=== PATIENT | female | born 1990 | race Caucasian/White ===

== ENCOUNTER 2018-03-28 08:30 | Outpatient (RCR) | payer MEDICAID, SELFPAY ==
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
--- NOTE | 2018-03-28 10:17 | BH.SGPN.GN ---
Behaviors/Verbalizations/Mental Status: []Client alert and oriented, casual dress. Eye contact good. Motor activity restless. Speech circumstantial, rambling at times, tone and frequency within normal limits. Affect congruent, mood anxious. Thoughts circular, logical, no signs of hallucinations or delusions. Client Response/Progress/Benefit: []Client responded well to session, active participant. Client stated coping skills help one process, manage, and release emotions. Client shared she has learned unhealthy coping skills from family and friends over the years and has had to remove people from my life. Client reported she continues to struggle with toxic relationships. Client participated in the activity, engaged and connecting how a sturdy base is needed for developing coping skills and overcoming hardships. Client reported it is important to have a mix of internal and external coping skills or else your tower will crumble. Client shared she lacks internal coping skills and relies on external supports which has been unhelpful as client reports her supports do not understand mental health. Client appeared to benefit from increasing awareness of her coping skills and of the benefits of having a balance of internal and external coping skills. Clients first day in IOP, seems to be motivated as evidenced by note-taking and high engagement. Client to continue IOP to prevent decompensation and increase mood stability.
--- NOTE | 2018-03-28 11:25 | BH.SGPN.GN ---
Behaviors/Verbalizations/Mental Status: []Client alert and oriented, dress casual. Eye contact good. Motor activity restless. Speech circular, rapid at times. Affect congruent, mood anxious. Thoughts linear, logical, no signs of hallucinations or delusions. Client Response/Progress/Benefit: []Client responded well to session, smiling with peers at times and positively contributing to discussion. Client able to identify healthy and unhealthy coping skills she has used in the past to regulate emotions and mental health. Client reported coloring and music are her go to coping skills. Client helped the group create a list of coping skills for the five categories of coping skills- distraction, emotional release, grounding, self-love, and thought challenging. Client also able to identify the pros and cons of each coping skill category. Client reported she would like to work on grounding and self-love coping skills. Client reported willingness to try squeezing a stress ball, journaling positives, meditation, and telling herself thoughts are thoughts not facts. Client appeared to benefit from increasing her repertoire of healthy coping skills and learning the importance of using a variety of coping skills. Client to continue IOP to prevent decompensation, improve mood stability, and increase emotional regulation skills.
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
--- NOTE | 2018-03-29 09:07 | BH.SGPN.GN ---
Behaviors/Verbalizations/Mental Status: [ Client eye contact fair, tearful throughout, casually dressed, motor activity was restless - client having observable difficulties sitting still as evidenced by rocking in chair and shaking legs, speech normal rate and tone, thoughts linear and logical, no evidence of delusions or hallucinations. Therapist reviewed clients symptom tracker to assess for intensity of mental health symptoms and identify risk for suicide. No signs of suicidal ideation, plan, or intent to date.] Client Response/Progress/Benefit: [Client receptive of engaging in process group discussion. She indicated feeling good when she initially left the group environment however felt as though she was surrounded by negativity upon returning home. Client went into detail discussing frustrations with current toxic relationships and backlash about making efforts to improve her own mental health and wellness. Client indicated not knowing how to improve her current situation when the people feel absent most of the ones that are hurting her. Client benefited from discussing the importance of setting emotional boundaries as well as focusing on personal self-care strategies to ensure emotional stability in times of increased stress. Client displaying progress in her ability to identify current barriers to improving mental health and managing emotions. Commended continued IOP treatment in order to prevent decompensation as well as further improve client ability to effective only communicate mental health needs as well as increase distress tolerance skills.] Narrative Note: []
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
--- NOTE | 2018-03-30 09:03 | BH.SGPN.GN ---
Behaviors/Verbalizations/Mental Status: []Client alert and oriented, dress casual, well groomed. Eye contact good. Motor activity restless. Speech rapid. Affect congruent, mood euthymic. Thoughts linear, logical, no signs of hallucinations or delusions. Reviewed clients symptom tracker, no risk for suicidal ideation, plan, or intent as of 03/30/18. Client Response/Progress/Benefit: []Client responded well to session, active participant. Client reports feeling better than I have been after waking up in a good mood. Client stated belief coming to IOP and minimal stress at home this morning contributed to her good mood. Client identified her current positives to be taking care of her hygiene this morning and learning coping skills in group. Client shared she continues to struggle with managing symptoms of anxiety and PTSD. Client reported I need a better foundation of coping skills in order to manage her anxiety and PTSD better as client currently relies on medication to regulate her symptoms. Client appeared to benefit from reflecting on the positives and receiving supportive statements from peers. Client seems to be progressing as shown by her report of an improved outlook on her ability to make progress, but client continues to struggle with negative thinking, unhealthy supports, and coping with her mental health symptoms. Client to continue IOP to prevent decompensation and increase mood stability.
--- NOTE | 2018-03-30 10:15 | BH.SGPN.GN ---
Behaviors/Verbalizations/Mental Status: [Client maintained good eye contact, casually dressed, motor activity restless bouncing leg and moving around room, messing with objects on table, speech normal rate and tone, mood anxious, euthymic, full affect, thoughts linear and intact, no evidence of delusions or hallucinations.] Client Response/Progress/Benefit: [Client receptive of session and an active participants throughout AEB providing input to discussion, asking questions, and taking notes. Client did well to collaborate with fellow participants to attempts to complete ?group juggle? activity. With group guidance, she was able to make connections between activity and components of a resilient lifestyle, identifying that if you focus on too many stressors at a time it is easy to get overwhelmed and shut down. Client shared that she knows she needs to take things ?one thing at a time? to prevent from having a panic attack. Client appeared to benefit from gaining awareness of the different factors that contribute to building a resilient lifestyle. Client identified that connecting with the ?hope and optimism? and ?move towards goals? as without these it is hard to stay motivated to ?stay on track?. Progress noted in client ability to make connections between materials discussed and own life. Continued treatment necessary to improve emotion regulation skills as well as prevent decompensation.] Narrative Note: []
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
--- NOTE | 2018-03-30 12:42 | BH.DR.ITP ---
Initial Treatment Plan - Patient Information Visit Information: ADMISSION DATE: EXPECTED LOS: 4-6 weeks Diagnoses:: Major depressive disorder of 33.1. PTSD. Borderline personality disorder - Problems/Symptoms Problem #1:: Depression Symptom:: Sad mood, difficulty concentrating, and self-harm behavior Problem #2:: Anxiety Symptom:: Rumination, panic, intrusive traumatic memories Problem #3:: Emotional dysregulation Symptom:: Self-harm urges
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
--- NOTE | 2018-04-03 09:02 | BH.SGPN.GN ---
Behaviors/Verbalizations/Mental Status: []Client alert and oriented, neatly dressed and groomed. Eye contact good. Motor activity restless as shown by client shaking her leg and rocking. Speech within normal limits. Affect congruent, mood anxious. Thoughts linear, logical, no signs of hallucinations or delusions. Reviewed clients symptom tracker, no risk for suicidal ideation, plan, or intent as of 04/03/18. Client Response/Progress/Benefit: []Client responded well to session, providing supportive statements to peers. Client reports feeling anxious today due to an upcoming court case. Client stated she plans to make stops at community agencies today to help reduce her anxiety. Client shared feeling like she is in the yellow zone most of the time. Client identified her positives as using healthy coping skills yesterday when she felt anxious and shaky. Client shared she gardened and talked to a neighbor to manage her anxiety which was helpful. Client reported I do feel like I slipped back yesterday as client drank 2-3 shots to take the edge off and help client relax. Client stated the shots made her feel tired and she was concerned about taking the shots with her medications. Therapist discussed the potential risks of using alcohol as a coping skill as well as using alcohol while taking certain medications. Client was receptive to the discussion of risks and she also connected with progress not being linear. Client appeared to benefit from gaining support from peers and psychoeducation. Client seems to be progressing with generalizing healthy coping skills, but she continues to struggle with reverting to unhealthy coping skills such as substance use to manage anxiety.
--- NOTE | 2018-04-03 10:15 | BH.SGPN.GN ---
Behaviors/Verbalizations/Mental Status: [Client maintained good, consistent eye contact, casually dressed - appearing appropriately groomed, motor activity within normal limits, speech normal rate and tone - well engaged in discussion, mood euthymic, contemplative, affect congruent, thoughts linear and logical, no evidence of delusions or hallucinations.] Client Response/Progress/Benefit: [Client receptive of session and engaged throughout, AEB providing input to discussion and insight regarding her experiences with topic of conflict resolution. Client indicated connecting with the quote for today's topic and expressed ?I can agree with that? in regards to the idea that conflict can arise from a lack of understanding. Client indicated that in the past she and her significant other fight because they have not been communicating effectively or truly listening to one another. Benefited from reviewing various conflict resolution styles and the pros and cons of each. She identified often falling into the accommodating or ?collaborating? approach to conflict. Client made progress in her ability to identify ways in which she would like to improve her ability to assert her own needs in times of disagreement and discussed ?I want to be more of a shark? in future conflict situations rather than shutting down. Client appears limited in ability to areas in which she currently utilizes assertive, at times aggressive approaches. Recommended continued IOP treatment in order to further improve gains, prevent decompensation, and increased utilization of effective communication and ?fair fighting? skills with supports.] Narrative Note: []
--- NOTE | 2018-04-03 11:17 | BH.SGPN.GN ---
Behaviors/Verbalizations/Mental Status: [Client maintained good eye contact, dressed casually and neatly, motor activity restless shifting in chair and moving around room, speech normal rate and tone, mood euthymic, anxious, affect congruent, thoughts linear and logical, no evidence of delusions or hallucinations.] Client Response/Progress/Benefit: [Client responded well to session, active participant AEB input provided in discussion and activity portions as well as asking clarification question. Client did well to work with fellow participants in completing the challenge activity. Indicates using collaborative communication throughout and with guidance did well to identify using assertive approaches as well. Client reflected that she sometimes can be assertive in her own life without realizing it when in a comfortable environment. Client progress noted in identifying how approaches to conflict in activity relate to her approaches to conflict in dx life. Client helped the group identify strategies to improve conflict resolution such as knowing when to walk away, being clear about expectations and concerns, as well as giving each other time to talk. Client appeared to benefit from learning various conflict resolution strategies. Client to continue IOP improve mood regulation and communication with supports, as well as prevent decompensation.] Narrative Note: []
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
--- NOTE | 2018-04-04 10:25 | BH.SGPN.GN ---
Behaviors/Verbalizations/Mental Status: []Client alert and oriented, dress casual, hygiene fair. Eye contact good. Motor activity appropriate. Speech within normal limits. Affect full, mood euthymic. Thoughts linear, logical, no signs of hallucinations or delusions. Client Response/Progress/Benefit: []Client responded well to session, active participant. Client connected with the quote sharing, ?you reinforce the negatives when you overthink? then it?s hard to change thoughts.? ?Client participated as the group discussed the different types of distortions and client reported she most often uses labeling, jumping to conclusions, and all or nothing thinking. Client able to recognize how cognitive distortions negatively impact one?s emotional well-being. Client appeared to benefit from gaining insight to the different types of cognitive distortions. Client to continue IOP to prevent decompensation and increase emotional regulation skills.
--- NOTE | 2018-04-04 11:25 | BH.SGPN.GN ---
Behaviors/Verbalizations/Mental Status: []Client alert and oriented, casual dress. Eye contact good. Motor activity appropriate. Speech within normal limits. Affect full- laughing with peers, mood euthymic. Thoughts linear, logical, no signs of hallucinations or delusions. Client Response/Progress/Benefit: []Client responded well to session, active participant. Client was engaged during the group activity and connected that overcoming cognitive distortions takes a lot of time, practice, and energy. Client shared ?you actually have to do something about it.? Client stated it is important to have awareness when she is using distortions, so she can challenge them. Client participated with the group in identifying cognitive distortions and replacing them. Client challenged her thought of ?things will never get better? which client identified as all or nothing thinking. With group help, client reframed the thought to ?things can get better and they are getting better? Client appeared to benefit from gaining insight to the effort it takes to replace negative thoughts and from challenging a negative thought during group.
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
--- NOTE | 2018-04-05 09:04 | BH.SGPN.GN ---
Behaviors/Verbalizations/Mental Status: [] Pt eye contact fair, casually dressed, motor activity restless, speech normal rate and tone, mood anxious, congruent affect, thoughts linear and logical, no evidence of delusions or hallucinations. Reviewed client?s symptom tracker, no signs of suicidal ideation, plan, or intent as of today. Client Response/Progress/Benefit: [] Client reported there is actually no drama at my home last night which was pretty awesome. Client shared her boyfriend actually listen to client communicate how she was feeling and did not overtake the conversation or be disrespectful. Client reported she focused on accomplishing her goals by cleaning the kitchen cooking dinner, sitting by her garden and coloring, and read her daughter a story. Client shared she is really excited about the fact she was able to read her daughter story because typically she become too anxious and not able to do it for fear of messing up. Client reported stressor is still not having found financial assistance to help until she gets approval from Social Security for financial assistance. Progress noted AEB client utilizing healthy skills and following through on her goals. Client to continue IOP level of care to stabilize moods, improve daily functioning and prevent decompensation. Narrative Note: []
--- NOTE | 2018-04-05 10:08 | BH.SGPN.GN ---
Behaviors/Verbalizations/Mental Status: [Client maintained good eye contact, casually dressed, motor activity appropriate, speech normal rate and tone, mood euthymic, positive, affect full, thoughts linear and logical, no evidence of delusions or hallucinations.] Client Response/Progress/Benefit: [Client responded well to session, active participant throughout and providing input to discussion. Client appeared to connect with the topic of ?taking action? and discussed waning to be able to actually be able to make positive changes in her own metal health symptoms in order to feel happy again and not slide back into depression. Client identified things in her life that are holding her back from moving towards mental wellness such as limited supports, finances, family relationships, finances, negative thinking, and easily becoming overwhelmed. Client stated she wants to take back control over these stressors and symptoms because she wants to be able to learn to love herself more and better control her own happiness. Client appeared to benefit from identifying stressors and symptoms holding her back and participating in a symbolic activity. Client to continue IOP to continue increasing management of emotions and use of distress tolerance skills and communication with supports, as well as to prevent decompensation.] Narrative Note: []
--- NOTE | 2018-04-05 11:15 | BH.SGPN.GN ---
Behaviors/Verbalizations/Mental Status: [Client maintained good eye contact, casually dressed, motor activity appropriate, speech normal rate and tone, mood euthymic, positive, affect full, thoughts linear and logical, no evidence of delusions or hallucinations.] Client Response/Progress/Benefit: [Client responded well to session, active participant and providing increased input throughout. With group support and guidance, Client created a 30-day action plan to promote emotional wellness and take back control over her mental health. Client needing some one on one assistance at times due to limited comprehension of certain prompts. Client's goal for the next 30 days is ?no more isolating?. Client shared wanting to improve self-esteem and believes decreasing isolation will aid in achieving this goal. Client's steps included reminding herself daily of positive affirmations, calling one person each day, and finding something outside of the house to do each week. Client appeared to benefit from identifying a 30-day goal that will improve her mental wellness. Progress noted as client ability to identify barriers to mental wellness, but client continues to report ongoing challenges with implementing healthy communication with supports which often impacts ability to regulate emotions. To continue IOP to promote gains and increase emotional regulation, as well as prevent decompensation.] Narrative Note: []
--- NOTE | 2018-04-06 09:00 | BH.SGPN.GN ---
Behaviors/Verbalizations/Mental Status: [] Eye contact was fair. Motor Activity was restless. Appearance was casual. Speech was appropriate. Mood was anxious. Affect was congruent. Thoughts are linear and logical. No evidence of hallucinations/delusions noted. Therapist reviewed daily mood tracker for suicidal ideations and none were reported. Client Response/Progress/Benefit: [] Pt was an active participant in group discussion. Emotion for today is restless but content. Shared with the group that she completed her goals and assignments from yesterday. States that she sat outside for 3 hours and completed some mindfulness and calming skills. Reports that she also listened to music and talked with her neighbor. Also reports another goals involved spending some time with daughter which she completed as she read to her. Reports that she continues to struggle with internal negative talk and thoughts and feels that her anti-depressant is wearing off around 5pm which can cause increased irritability and difficulty managing emotions. Overall reports improved mood and improved relationship with bf yesterday. Benefited from group support and feedback. Progress noted as evidenced by utilizing coping skills learned in group. Will continue in IOP to stabilize mood, increase daily functioning, and prevent further decompensation. Narrative Note: []
--- NOTE | 2018-04-06 10:05 | BH.SGPN.GN ---
Behaviors/Verbalizations/Mental Status: []Client alert and oriented, hygiene fair, somewhat disheveled. Eye contact good. Motor activity appropriate. Speech within normal limits. Affect full, mood euthymic, anxious. Thoughts linear, logical, no signs of hallucinations or delusions. Client Response/Progress/Benefit: []Client responded well to session, active participant and providing supportive statements to peers. Client appeared to connect with the quote sharing, we can make a self-fulfilling prophecy when we don't try. Client identified failure as not completing a goal or following through with something. Client shared fear of failure can be increased due to anxiety and depression. Client stated, when you're really overwhelmed you don't want to try. Client participated in the group activity and reported connecting with the concept that progress is not always linear. Client appeared to benefit from gaining insight to how fear of failure impacts mental health. Client to continue IOP to prevent decompensation, reduce anxiety, and increase emotional regulation skills.
--- NOTE | 2018-04-06 11:07 | BH.SGPN.GN ---
Behaviors/Verbalizations/Mental Status: []Client alert and oriented, dress somewhat disheveled. Eye contact good. Motor activity restless. Speech within normal limits. Affect congruent, mood euthymic, anxious. Thoughts linear, logical, no signs of hallucinations or delusions. Client Response/Progress/Benefit: []Client responded well to session, engaged throughout session. Client processed the group activity and shared you have to believe in yourself and its okay to go backwards sometimes. Client stated fear of failure has kept client from making positive changes in her life and it has led to increased negative thinking. Client shared fear of the unknown or the I dont knows has also kept client stuck. Client identified strategies to overcome fear of failure such as saying positives to herself, taking care of her basic needs, and doing something for my self-esteem. Clients goal for the weekend is to get dressed and do her makeup at least once to improve self-esteem. Client appeared to benefit from increasing awareness of how fear of failure has impacted her life and identifying strategies to overcome fear of failure. Progress noted as shown by clients report of using distraction coping skills to manage anxiety and depression, but client continues to struggle with emotional regulation and relationship issues. Client to continue IOP to prevent decompensation and increase emotional regulation.
--- NOTE | 2018-04-06 11:55 | PCM.PN.BLA ---
Progress Note Patient is seen in follow-up for major depressive disorder, PTSD, borderline personality disorder. History is been obtained per interview with patient, discussion with staff, review of chart. Case discussed with treatment team. Chief complaint Depression, anxiety, emotional dysregulation. Interim history Moderate depressive symptoms persist but of decreased intensity as the week progressed. She reports some mild irritability occurring between 4 and PM in the afternoon. She is unable to identify specific exacerbating factors. She wonders if this could be possible side effect of medication. She notes that she takes Effexor X are 150 mg at 6 AM. She then takes Effexor X are 75 mg at noon. She then takes trazodone at 4 PM. She has ruminative anxiety regarding upcoming court date on Monday. She has been managing her anxiety with coping skills gained through IOP and meditative apps. She was able to discontinue her Xanax. She denies withdrawal symptoms or adverse effects. She is currently using Vistaril 50 mg p.o. every morning as needed for anxiety. No suicidal or homicidal ideation later to her detected. No evidence of psychosis related to her detected. Sleeping 8-12 hours per night with the assistance of trazodone. Appetite normal. Denies nausea vomiting or diarrhea. Consuming one coffee and one soda daily. Encouraged caffeine reduction. Daily cannabis. Smokes 1 pack cigarettes daily. Mental status exam Alert and oriented . No acute distress. Ambulatory with normal gait and station. Appears stated age. Casually dressed and groomed. Appropriate hygiene. Cooperative with interview. Good eye contact. No psychomotor agitation or retardation. Mood depressed but improved. Affect congruent. Speech is clear and with regular rate and rhythm. Language fluent. Thought process organized. Associations logical. Thought content significant for ruminative anxiety and themes of depression. No suicidal or homicidal ideation related or detected. No symptoms consistent with psychosis noted or detected. Immediate recent and remote memory grossly intact. Attention and concentration are fair. Estimated intelligence and fund of knowledge average. Judgment and insight fair. Labs and testing April 05, 2018 vitamin D low at 12.3. TSH normal at 1.3 -labs reviewed with patient. Diagnosis Major depressive disorder recurrent moderate F 33.1 rule out bipolar disorder PTSD Borderline personality disorder Nicotine use disorder Cannabis use disorder Vitamin D deficiency. Plan Continue IOP as the structured setting is necessary to prevent decompensation. Risk-benefit alternative of medications discussed with patient. Patient acknowledges understanding. Continue Effexor XR 150 mg every morning and 75 mg at noon. Continue Vistaril 50 mg p.o. every morning and once daily as needed anxiety. Continue trazodone 50 mg p.o. nightly which she will take at 6 PM as needed for sleep. Start vitamin D 5000 units daily. Encourage smoking cessation. Encouraged cannabis abstinence. Encouraged caffeine reduction. Encouraged to maintain appointments with outpatient psychiatric providers for when IOP complete. Patient acknowledges understanding and is in agreement with plan. Feels able to maintain safety. Agrees to seek help or emergency care if feeling unsafe to self or others. 16 minutes supportive psychotherapy provided.
== END 2018-04-06 23:59 ==
LOC: BHIOP 08:30
PROVIDERS: Visit Provider Psychiatry & Neurology Psychiatry
DX: F33.1 Major depressive disorder, recurrent, moderate (principal); F43.10 Post-traumatic stress disorder, unspecified; F60.3 Borderline personality disorder
CPT/HCPCS: 90833; 90836; 99214; H0035; H2012; H2020; T1002; 90837

== ENCOUNTER → 2018-04-05 12:14 | Outpatient (CLI) | payer MEDICAID, SELFPAY ==
[2018-04-06 09:11] LABS: Vitamin D,25 Hydroxy 12.3 ng/mL (29.95-100.01)
== END ==
PROVIDERS: Visit Provider Psychiatry & Neurology Psychiatry
DX: E55.9 Vitamin D deficiency, unspecified (principal); Z79.899 Other long term (current) drug therapy
CPT/HCPCS: 36415; 82306; 84443

== ENCOUNTER 2018-04-10 08:59 | Outpatient (RCR) | payer MEDICAID, SELFPAY ==
--- NOTE | 2018-04-10 10:12 | BH.SGPN.GN ---
Behaviors/Verbalizations/Mental Status: [Client alert and oriented, casually dressed and groomed. Eye contact good. Motor activity appropriate. Speech within normal limits. Affect congruent, mood dysthymic. Thoughts linear, logical, no signs of hallucinations or delusions. ] Client Response/Progress/Benefit: [Pt responded well to session, actively engaged throughout. She appeared to connect with the topic of Communication, though at times struggled with understanding content. Able to ask for clarification when needed. Indicated relating with the quote of the day and discussed that she and her boyfriend have experienced issues at times when they assume they know what the other is thinking. Pt expressed connecting with barriers to communication identified by fellow participants. She was actively listening during discussion on different communication styles and provided thoughts regarding each style's pros and cons. Pt shared relating to each of the communication styles depending on who she is talking to; however, most often related to passive or aggressive. Pt shared wanting to become more assertive. Pt appeared to benefit from psycho-education provided regarding communication and it's impacts on mental health. Progress noted in pt ability to identify her own communication style and it's impact on her mental health, noting that when communication is impacted she her depression and anger worsen. Pt recommended continued IOP tx to promote healthy change behaviors, increase emotion regulation, and prevent decompensating.] Narrative Note: []
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
--- NOTE | 2018-04-10 11:26 | BH.SGPN.GN ---
Behaviors/Verbalizations/Mental Status: []Client alert and oriented, casual appearance. Eye contact good. Motor activity appropriate. Speech within normal limits. Affect congruent, mood euthymic. Thoughts linear, logical, no signs of hallucinations or delusions. Client Response/Progress/Benefit: []Client active participant AEB her positive contributions and engagement throughout. Client took an active role and willing to take directions from fellow participants during the activity that encouraged clients to practice clear, specific communication. Group identified strategies that helped the group communicate more effectively during the activity. Client identified communication goal which is to practice being more clear, calm, and consistent in her communication with supports. Client seemed to benefit from increased insight into how her communication style impacts mental health and identifying strategies for increasing effective communication skills. Progress noted as client reports increased mood regulation and use of coping skills. Will continue IOP tx to prevent decompensation, improve mood stability, and promote consistent use of coping skills. Narrative Note: []
--- NOTE | 2018-04-11 10:20 | BH.SGPN.GN ---
Behaviors/Verbalizations/Mental Status: [] Pt eye contact poor, casually dressed, motor activity restless, speech normal rate and tone, mood depressed and anxious, labile affect, thoughts linear and intact, somewhat disengaged, no evidence of delusions or hallucinations. Client Response/Progress/Benefit: []Client not as actively engaged compared to previous group sessions. Client appeared distracted and anxious throughout group session which seemed to impact her participation level. Client shared when feeling extremely stressed it's hard to challenge her thought process or reframe unhelpful thoughts. Pt connected with the fact she first needs to be able to calm her body down when stressed so she can be more rational in her thought process. Client identified current stressors to be: Negative thoughts, anger, feeling hurt, and toxic people. Client seemed to benefit from increased awareness into current stressors as well as increased insight that her current response to overwhelming stress is anger outbursts which often makes her situation worse. Client to continue IOP level of care to improve mood stability, improve daily functioning, and prevent decompensation. Narrative Note: []
--- NOTE | 2018-04-11 11:30 | BH.SGPN.GN ---
Behaviors/Verbalizations/Mental Status: []Pt eye contact fair, casually dressed, motor activity restless, speech normal rate and tone, mood anxious and depressed, constricted affect, thoughts linear and logical, no evidence of delusions or hallucinations. Client Response/Progress/Benefit: []Client demonstrated increased engagement during group activity, although struggled with remaining positive and at times disengaged. Client verbalized frustration and anxiety during group activity, but was able to continue activity and not give up. Client identified it helped her to take a step back from the activity for a minute to calm herself down and was able to participate more effectively after taking that step back. Client reported it could also be helpful when dealing with stressors to acknowledge negative thoughts, so she can reframe/challenge in the moment. Client reported her goal is to reflect on her stress jar and identify what stressors she can directly work on now so she can slowly decrease her stress. Client seems to be experiecing set back in progress AEB client's increased negativity and reporting at one point in group there is no point in doing my skills because they don't work. Client to continue IOP level of care to decrease anxiety, improve daily functioning, and prevent decompensation. Narrative Note: []
--- NOTE | 2018-04-11 14:36 | BH.MDN_ITS ---
Multi-Disciplinary Note - Note 60-min Individual Time Started:: 09:01 Date: 04/11/18 Purpose of session/treatment goals addressed:: The purpose of this session was to follow-up with Client regarding family session on previous date. Another purpose was to work with patient to review warning signs to look out for and coping skills she may utilize when experiencing a trigger. Eye Contact:: Good Motor Activity:: Appropriate Appearance:: Casual Speech:: Appropriate Mood:: Depressed Affect:: Flat Thoughts:: Linear, Logical, No evidence of hallucinations/delusions noted Staff Interventions:: Therapist asked open ended questions to elicit additional information regarding client perception of family session and her boyfriend?s receptivity of information discussed. Therapist inquired on client current symptoms, stressors, and use of healthy coping skills. Used reflective listening and empathic responses to provide emotional validation. Therapist utilized VT techniques to work with client to review triggers and identify the effective coping skills for each trigger. Client Response:: Client receptive of session and actively engaged throughout. She discussed feeling relieved to have had the family session with her boyfriend on the previous date. Client noted that she felt her boyfriend was receptive of the information discussed and that she had been glad to hear that her boyfriend was willing to make some adjustments to better support her mental health needs. CLient discussed that they had further discussed the session afterwards and that they plan to make stronger efforts to support one another. She went on to dis cuss that she and her boyfriend were able to apply the skill of taking a break when becoming agitated to avoid a potential conflict. Discussed that in doing so they had been able to talk it out and remain calmer than usual. Client noted wanting to help her boyfriend better understand her warning signs and triggers so that he could remind her to utilize coping skills during those times. The remainder of session was spent reviewing client warning signs which were identified as: silence or being alone/ignored, being spoken to aggressively, and when others drink alcohol eccessively around her. CLient and therapist discussed what ehr boyfriend could remind her to say or do during those times and she indicated plans to review strategies discussed with him tonight. Risks/Concerns:: Client's home environment continues to appear chaotic at times; however, client reports feeling more capable of maintaining safety with her boyfriend's support. Reports plans to begin couple's counseling. Client denies any active SI, plan, or intent as of this date 04/11/18. Willing to access local crisis resources provided should she feel unable to maintain safety at anytime. Progress Toward Goals/Plan:: Progress noted. Pt reports improved communication with her boyfriend who is her primary support and often major stressor. She shared increased ability to utilized effective conflict resolution skills and expressed willingness to continue to do so. Pt is appearing more capable of identifying warning signs and triggers for trauma. She is continuing to make progress in application of healthy coping skills during those times, however would benefit from ongoing IOP tx to further promote healthy change behaviors, increase emotion regulation, and reduce depressive sx. Time Stopped:: 10:09
--- NOTE | 2018-04-12 09:07 | BH.SGPN.GN ---
Behaviors/Verbalizations/Mental Status: []Eye contact is good. Motor activity is appropriate. Appearance is casual, disheveled. Speech is Appropriate. Mood is euthymic. Affect is congruent. Thoughts are linear and logical. No evidence of psychosis. Reviewed daily check in sheet and pt denies any suicidal ideations, plan, or intent. Client Response/Progress/Benefit: []Pt was an attentive and active participant in group discussion. Emotion for today is ?jittery and contented?. Shared that she went to her initial appointment for [facility] and noted feeling worried about this as it is new for her. Pt receptive of support provided by group. She reflected upon improved communication with her supports and increased ability to maintain calm when stress while making dinner. Shared taking a break as needed to keep from escalating. Progress noted per pt report of improved thought challenging and reduced agitation. Benefited from group support, encouragement, and feedback. Will continue IOP tx to prevent decompensation, increase mood stability, and reduce mental health sx severity. Narrative Note: []
--- NOTE | 2018-04-12 10:24 | BH.SGPN.GN ---
Behaviors/Verbalizations/Mental Status: []Client alert and oriented, dress casual. Eye contact good. Motor activity appropriate. Speech within normal limits. Affect constricted, mood depressed, anxious. Thoughts linear, logical, no signs of hallucinations or delusions. Client Response/Progress/Benefit: []client responded well to session, taking notes and participating in discussion. Client appeared to connect with the quote sharing, we know staying stuck is painful, but we do it anyway. Client processed with the group the different emotions associated with change and how these emotions impact how one manages change. Client also discussed with the group how depression, anxiety, and other mental health diagnoses can impact change. Client stated for her, change typically makes client feel anxious, angry, and overwhelmed which makes client avoid making change at times. Client appeared to benefit from increasing awareness of how emotions impact how one manages change. Client seems to be progressing as evidenced by her report of implementing healthy coping skills to manage her mental health symptoms, but client continues to report relationship issues and negative thinking.
--- NOTE | 2018-04-12 11:33 | BH.SGPN.GN ---
Behaviors/Verbalizations/Mental Status: []Client alert and oriented, hygiene clean, casual dress. Eye contact good. Motor activity restless Speech within normal limits. Affect constricted, mood anxious, dysthymic. Thoughts linear, logical, no signs of hallucinations or delusions. Client Response/Progress/Benefit: []Client responded well to session, active participant, providing supportive statements. Client engaged in the group activity that portrayed what change can look like and feel like. Client reported the activity was frustrating at times because some group members had high expectations. Client stated when she is faced with change it helps client to set small goals and build confidence. Client identified coming to IOP as a time when she experienced a positive change. Client helped the group create strategies to better manage change such as communicating with supports, identifying barriers, setting small goals, and challenging negative thinking patterns. Client appeared to benefit from identifying times when change was positive. Progress noted in clients report of generalizing internal and external coping skills, but continues to struggle with emotional regulation to manage anxiety and anger.
--- NOTE | 2018-04-13 11:44 | BH.NOTE ---
BH: Inpatient Note - Notes Behavioral Health Inpatient Note: Per V.O. from Dr. Ojeda, the following was called in [facility] ([place]) prescriber line: Vistaril 25-50mg PO BID prn for anxiety #60 NO refills Giselle Razo, BSN, RN
--- NOTE | 2018-04-17 10:10 | BH.SGPN.GN ---
Behaviors/Verbalizations/Mental Status: [] Pt eye contact good, casually dressed, motor activity appropriate, speech normal rate and tone, mood euthymic, congruent affect, thoughts linear and intact, no evidence of delusions or hallucinations. Client Response/Progress/Benefit: []Pt contributed positively to discussion, listened attentively to others and was cooperative with peers during activity. Pt shared goals are important because provides direction and end point. Pt agreed there are many benefits to having goals including can increase confidence and keeps you moving forward. Pt shared although she knows it's important to have goals sometimes it's hard for her to follow through with established goals. Pt identified a couple barriers to accomplishing a goal to include: toxic people, high expectations and believe can't do the goal. Pt worked cooperatively with peers during challenge activity, able to recognize the importance of having small, attainable goals. Pt seemed to benefit from learning about SMART goal setting. Narrative Note: []
--- NOTE | 2018-04-17 11:10 | BH.SGPN.GN ---
Behaviors/Verbalizations/Mental Status: []Pt eye contact fair, casually dressed, motor activity restless, speech normal rate and tone, mood anxious, congruent affect, thoughts linear and logical, no evidence of delusions or hallucinations. Client Response/Progress/Benefit: []Pt contributed positively to discussion and listened attentively to others. Pt identified her goal is to say 5 positive statements about herself every night before bed. Pt shared this will benefit her because it will decrease her negative self-talk and increase focus on the positives. Pt identified potential obstacles to accomplishing her goal to include: her kids, family, negative self-talk, and toxic people. Pt shared she will overcome the obstacle of family and kids by communicating more effectively and taking breaks. Pt reported she can overcome the barrier of negative self-talk by reframing and challenging distorted thoughts. Pt reported she can manage the obstacle of toxic people by reevaluating her friends and setting boundaries. Pt seemed to benefit from identifying small goal to work on over the week. Narrative Note: []
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
--- NOTE | 2018-04-26 09:05 | BH.SGPN.GN ---
Behaviors/Verbalizations/Mental Status: []Pt eye contact good, casually dressed, motor activity restless, speech normal rate and tone, mood anxious, congruent affect, thoughts linear and logical, no evidence of delusions or hallucinations. Reviewed client?s symptom tracker, no signs of suicidal ideation, plan, or intent as of today. Client Response/Progress/Benefit: []Pt reported she has been feeling blah the past couple days. Pt shared she has been using a lot of her healthy coping skills, but starting to recognize she needs to build upon her current coping because she's getting bored of coloring. Pt reported she is attributing her blah feeling to realizing the people she thought were her friends are no longer there for her now that she isn't throwing parties. Pt shared although it's disappointing to find out the people she thought were her friends are not there for her when she needs it, at least she knows who she can and can't count on. Pt reported she has been working on her [place] journal of getting out her unhealthy thought patterns which has been helpful. Pt shared she is moving forward with getting paperwork completed for [employer] and [employer] to get financial assistance. Pt progressing with continuing to utilize her healthy coping skills, thinking before reacting, and continued awareness of what is helpful and unhelpful to her progress. Pt to continue IOP level of care to maintain gains, stabilize moods, and prevent decompensation. Narrative Note: []
--- NOTE | 2018-04-26 10:09 | BH.SGPN.GN ---
Behaviors/Verbalizations/Mental Status: []Client alert and oriented, casual dress. Eye contact good. Motor activity appropriate. Speech within normal limits. Affect congruent, mood euthymic. Thoughts linear, logical, no signs of hallucinations or delusions. Client Response/Progress/Benefit: []Client responded well to session, active in discussion. Client appeared to connect with the quote. Client created a visual representation of her current and desired realities in regards to mental wellness. In client?s current reality client described struggling to feel connected with supports and feeling controlled by her negative thoughts and past mistakes. Shared desired reality is feeling more capable of communicating with supports, spending more time with her kids, and being able to get rid of toxic people in her life. Client appeared to benefit from gaining awareness of what her current and desired realities look like as well as reflecting on progress she has made. Client to continue IOP to promote gains and increase consistency of healthy coping and communication skills. Narrative Note: []
--- NOTE | 2018-04-26 11:15 | BH.SGPN.GN ---
Behaviors/Verbalizations/Mental Status: []Client alert and oriented, casual dress. Eye contact good. Motor activity appropriate. Speech within normal limits. Affect congruent, mood euthymic. Thoughts linear, logical, no signs of hallucinations or delusions. Client Response/Progress/Benefit: []Client responded well to session, contributing positively. Client identified barriers in client?s control that are keeping her from getting to her desired reality such as negative thinking and toxic relationships Client engaged in the group activity and was able to develop strategies to help overcome these barriers. Client reflected on the activity and noted importance of asking for help in overcoming barriers. Client set a goal to overcome the barrier of negative thinking by using daily affirmations. Client appeared to benefit from problem-solving barriers in the moment. Progress noted as shown by client?s increase positivity and motivation, but she can continue to reduce negative thinking and setting boundaries. Narrative Note: []
--- NOTE | 2018-04-30 09:00 | BH.SGPN.GN ---
Behaviors/Verbalizations/Mental Status: []Client alert and oriented, dress casual, hygiene fair. Eye contact good. Motor activity appropriate. Speech within normal limits. Affect bright, mood euthymic. Thoughts linear, logical, no signs of hallucinations or delusions. Reviewed client?s symptom tracker, no risk for suicidal ideation, plan, or intent as of 04/30/18. Client Response/Progress/Benefit: []Client responded well to session, providing supportive statements to peers. Client reports feeling ?content and happy? today as client used this weekend to practice self-care and look up colleges. Client stated she rented some self-help books from the library and shared they have been helpful in addition to the coping skills she has already been doing. Client reported she was able to spend an evening alone Monday when her boyfriend went out, which client identified as ?huge for me.? Client shared she realizes now she cannot be codependent and it is important for client to use self-love. Client appeared to benefit from identifying positives and receiving praise from peers. Progress noted as shown by client?s improved mood, but she can continue to benefit from increased emotional regulation skills to manage ongoing stressors.
--- NOTE | 2018-04-30 10:12 | BH.SGPN.GN ---
Behaviors/Verbalizations/Mental Status: []Client alert and oriented, casually dressed and groomed. Eye contact good. Motor activity appropriate. Speech within normal limits. Affect congruent, mood anxious, euthymic. Thoughts linear, logical, no signs of hallucinations or delusions. Client Response/Progress/Benefit: []Pt was an active participant in discussion and activity as evidenced by pt providing input throughout, listening to others, and taking notes. Group worked together to come up with common negative forces in their lives which can hold them back from growth. Negative forces included: mental illness, negative thoughts, toxic people, and too many responsibilities. Group then worked together to identify common positive forces which help us grow. Theses included: Healthy coping skills, positive support, self-care, positive self-talk and asking for help/IOP tx. Pt reported she believes personal growth is something she has been wokng on since beginning IOP tx and feels that confronting difficult things is helping in that area. Pt was attentive during psychoeducation on the importance of utilizing many aspects of positive forces to help one grow. Benefited from group with increased insight and awareness on the impact of negative and positive forces on mental wellness. Progress noted in increased insight. Recommended continued tx to reduce mental health sx severity, increase positive change behaviors, and prevent decompensation. Narrative Note: []
--- NOTE | 2018-05-03 14:53 | BH.MDN_ITS ---
Multi-Disciplinary Note - Note 30-min Individual Time Started:: 09:38 Date: 05/03/18 Purpose of session/treatment goals addressed:: The purpose of this session was to review client's symptoms, ability to manage stressors, and progress made in IOP. Another purpose was to discuss potential barriers to progress, as well as review strategies that will continue to promote mood stability and maintain gains made. Additional topics included: discharge recommendations and aftercare planning. Eye Contact:: Good Motor Activity:: Appropriate Appearance:: Casual Speech:: Appropriate Mood:: Euthymic, Anxious Affect:: Full Thoughts:: Linear, Logical, No evidence of hallucinations/delusions noted Staff Interventions:: Therapist used open-ended questions to explore client's thoughts on personal progress and potential barriers in maintaining gains made. Therapist assisted client in reviewing supports, warning signs, and coping skills to promote gains and prevent setbacks. Therapist provided emotional support and empathic responses to address client current stressors and anxiety regarding upcoming discharge. Therapist and client discussed aftercare plan and recommendations, utilizing the strengths-perspective to empower client on accomplishments. Client Response:: Client responded well to session, open to meeting with therapist and actively engaged in discussion regarding current progress and aftercare planning. Client stated she is feeling anxious today about an upcoming dentist appointment as she has had negative experiences at the dentist in the past. Client receptive of working with this therapist on identifying grounding strategies she can use to manage anxiety at her appointment. Client shared that she could bring her journal and have prewritten affirmational statements to look at for reassurance. Client continues to report an increased ability to regulate herself when recognizing anxiety warning signs and is more consistently applying healthy coping skills. Client additionally discussed ongoing stress related to her son and described a recent incident in which he reported inaccurate information to the school, resulting in a phone call from the administration. She shared that this had been resolved but that she continues to struggle with managing his behavioral issues. Client receptive of referral information for additional support with her son through parenting classes at [facility] in addition to individual counseling following IOP discharge next week. Client and therapist discussed areas of progress including emotion regulation when her children display difficult behaviors, anxiety management, and more active and effective communication with supports. Client reviewed strategies for success and discussed her plan for maintaining progress. Client identified that her mother has also agreed to help with finances which is an additional stress reliever. She identified the following strategies to be helpful in managing mental health symptoms. Client's strategies were: self-talk and reminding herself to ?accept the things that are out of my control, 5-senses, deep breathing, taking walks and coloring, communicating with her supports, thought challenging, and positive affirmations. Risks/Concerns:: Client denies any active suicidal ideations, plan, or intent as of this date, 05/03/18 Progress Toward Goals/Plan:: Client has demonstrated progress towards treatment goals as shown by her report of increased ability to cope with mental health symptoms and better regulate her emotions despite ongoing stressors. Client reports increased coping skills, though at times continues to struggle with consistent application of skills for better management of anxiety. Client states belief she has made progress with using grounding and self-soothing skills. Per client?s report, she feels her relationships have improved and she is better able to communicate her needs without conflict. Client?s aftercare appointments need to be finalized and she is recommended to continue with IOP tx to do so, as well as to maintain gains and prevent decompensation. Time Stopped:: 10:07
--- NOTE | 2018-05-04 15:00 | BH.NOTE ---
BH: Inpatient Note - Notes Behavioral Health Inpatient Note: Per V.O. from Dr. Ojeda, this RN called the following prescription refill into [facility] pharmacy in [place], [place]: Vistaril (25mg caps) 25-50mg PO BID prn anxiety #120 with no refills TORRI ShookN, RN
--- NOTE | 2018-06-14 14:43 | BH.MTP_ITS ---
Treatment Plan Review Date of Admission:: 03/28/18 Date of Treatment Plan Review:: 04/24/18 Admitting Diagnoses:: Major depressive disorder recurrent moderate F 33.1 rule out bipolar disorder. PTSD. Borderline personality disorder. Nicotine use disorder. Cannabis use disorder Current Diagnoses:: Major depressive disorder recurrent moderate F 33.1. PTSD. Borderline personality disorder. Nicotine use disorder. Cannabis use disorder Patient's Response to Treatment:: Client has responded well to IOP tx and is making steady progress towards tx goals. She displays marked improvement in areas of mh sx management associated with preventing crisis escalation and mood regulation. Additionally, Client reports an improved mood, reduced depression, decreased anxiety, and improvement in her communication and personal relationships. Client has done well to maintain consistent attendance and often is an active participant in group discussion. She remains medication compliant though reports ongoing difficulties in managing side effects of drowsiness associated. Client does seem to be putting effort into challenges given, but would benefit from continue to apply skills consistently outside of group setting. Client has reported to feel the Intensive Outpatient Program has been helpful and is giving client healthy supports and increased levels of insight into her mental health sx and management. Status of Current Problems and Symptoms: Client has made significant progress since starting IOP, but continues to report intrusive negative thoughts of self with no intent of self-harm, black and white thinking, and continued irritability associated with communicating with supports. Client continues to endorse mild anxiety about managing her mental health sx, her children, relationship with boyfriend, and finances. Depspite ongoing reports of anxiety related to identified stressors, Client has decreased in DSM scores regarding feelings of panic. She reports believing she has begun to improve healthy bound lizbeth setting, however continues to also endorse difficulty removing herself toxic environments which she reports are often triggering to her. Difficulty in maintaining and communicating healthy boundaries and may present as a barrier to ongoing tx progress. Client has made progress in overall improving mood management and denies active urges to self-harm. Problem #1 Problem Name:: Depression, self-harm urges, emotion regulation Status of Goals:: Client making progress towards goals, not yet complete .She is able to identify negative thinking patterns that mediate depression, feelings of worthlessness, self-harming urges. Client reports using her daily gratitude journal as a means for thought challenging, reframing, and affirmations. Client reports ongoing negative thoughts though is improving in ability to dismiss or replace them. She reports no recent self-harming urges and indicates an improved mood. Client?s DSM-5 scores for depression have reduced from 4 out 8 at admission, to 2 out of 8 at review. Reports improvements in mood regulation though continues to struggle with irritability at times. Has not yet complete mood management plan. Team Recommendations:: Recommended continued IOP tx to increase consistent mood regulation and application of healthy coping skills. Client recommended to establish aftercare and therapist will be helping with this process. Problem #2 Problem Name:: Anxiety, rumination Status of Goals:: Client has identified that ruminating on past experiences as well as worries about her current life stressors, and opinions of others, such as perceived rejection can lead to negative intrusive thinking and increased an xiety. Client has identified music, coloring, and journaling as helpful in managing anxiety. Reports that she is beginning to get bored of coloring and would like to adopt an additional skill. Client is trying to use mindfulness techniques to help in the moment. Though client has identified triggers to her anxiety, she client continues to struggling consistent application and generalization of coping skills to use when feeling anxious as well as to prevent crisis escalation and unhealthy coping. DSM scores for anxiety decreasing from 10/12 at admission to 5/12 at time of review. Team Recommendations:: Client to continue in IOP, continuing to work towards treatment goals.
== END 2018-05-06 23:59 ==
LOC: BHIOP 08:59
PROVIDERS: Visit Provider Psychiatry & Neurology Psychiatry
DX: F33.1 Major depressive disorder, recurrent, moderate (principal); F43.10 Post-traumatic stress disorder, unspecified; F60.3 Borderline personality disorder; Z72.0 Tobacco use; F12.90 Cannabis use, unspecified, uncomplicated
CPT/HCPCS: H0035; H2012; H2020; 90832; 90837; 90847

== ENCOUNTER 2018-05-08 09:00 | Outpatient (RCR) | payer MEDICAID, SELFPAY ==
--- NOTE | 2018-05-08 09:00 | BH.SGPN.GN ---
Behaviors/Verbalizations/Mental Status: [] Pt eye contact fair, casually dressed, motor activity restless, speech normal rate and tone, mood anxious, congruent affect, thoughts linear and logical, no evidence of delusions or hallucinations. Reviewed client?s symptom tracker, no signs of suicidal ideation, plan, or intent as of today. Client Response/Progress/Benefit: [] Patient reported this will be her last week in IOP because she needs to return to work to make money. Patient shared over the weekend she looked into several different [employer] classes that she could start after working for a couple weeks at her old job to make some money to get through. 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 Patient reported feeling anxious about returning to her old job because she knows there will be trauma and she is fearful that she will get stuck back into it. Therapist and group gently challenged patient that she has more skills compared to when she first started the program to help her manage and cope with the potential trauma at work. Patient able to recognize she does have more skills and feels more stable since she is on her medication more consistently. Patient reported another positive is she wants her dentist and the dentist is willing to fight patient's insurance company to get the patient a partial for her front tooth. Patient reported this will help improve her self-esteem because she is always been self-conscious of not having a front tooth. Patient demonstrating progress with increased self awareness, internalization of healthy coping skills, and decreased depressive symptoms. Patient to continue IOP level of care to maintain gains and prevent decompensation. Narrative Note: []
--- NOTE | 2018-05-08 10:05 | BH.SGPN.GN ---
Behaviors/Verbalizations/Mental Status: []Client alert and oriented, casual dress. Eye contact fair. Motor activity appropriate. Speech within normal limits. Affect constricted, mood euthymic. Thoughts linear, logical, no signs of hallucinations or delusions. Client Response/Progress/Benefit: []Client responded well to session, active participant. Client appeared to connect with the quote sharing, ?I used to build up ta around myself but I don?t do that no more.? Client discussed things that keep people stuck from achieving mental wellness such as trauma, isolation, depression, and anxiety. Client shared it is one?s negative thinking patterns that truly keep a person stuck. Client stated she has been feeling better, so she does not like to think about her past negative thoughts. With therapist gentle challenging, client recognized the importance of staying aware negative thoughts to prevent setbacks. Client identified past negative thoughts that have kept client trapped such as ?I want to give up, I don?t want this drama, can I really do this.? Client stated when she had these thoughts it made client feel low, ruminate, and isolate. Client appeared to benefit from gaining awareness how thought patterns impact mental health. Client to discharge from [facility] on as she has made significant gains.
--- NOTE | 2018-05-08 11:10 | BH.SGPN.GN ---
Behaviors/Verbalizations/Mental Status: []Client alert and oriented, causal dress. Eye contact good. Motor activity appropriate. Speech within normal limits. Affect congruent, mood euthymic. Thoughts linear, logical, no signs of hallucinations or delusions. Client Response/Progress/Benefit: []client responded well to session, providing supportive statements to peers. Client identified ?You are not good enough? as a current negative thought keeping client trapped. Client reported when she thinks this client cries, gets mad, self-sabotages, and feels lonely. ?Client shared her negative thought is unrealistic stating ?all that matters is yourself? and reframed it to ?you are good enough and you can?t make everyone happy.? Client stated this thought improves client?s mood, increases positive thoughts and helps client focus on self-care. Client helped the group identify strategies to challenge negative thoughts. Client seemed to benefit from challenging a current negative thought. Client to continue IOP to promote gains and increase mood stability.
--- NOTE | 2018-05-10 09:05 | BH.SGPN.GN ---
Behaviors/Verbalizations/Mental Status: [] Pt eye contact good, casually dressed, motor activity appropriate, speech normal rate and tone, mood euthymic, congruent affect, thoughts linear and intact, no evidence of delusions or hallucinations. Reviewed client?s symptom tracker, no signs of suicidal ideation, plan, or intent as of today. Client Response/Progress/Benefit: [] Client reported she returns to work on Monday which she is still a little anxious about but recognizes she has a lot of backup options if going back to this job does not work out for her. Client also recognizes she has made a lot of progress since last time she is been at work and has increased healthy coping skills that will assist her in getting through the day. Client shared she is also excited that her son is showing interest in wanting to learn strategies and ways to manage his emotions. Client reported she thinks her son is more open to learning because client now speaks to her son in a calm and respectful way versus just yelling. Client demonstrating progress with improved mood stability, generalization of healthy skills, improved emotional regulation Narrative Note: []
--- NOTE | 2018-05-10 09:39 | BH.IGGP_ITS ---
Aftercare Plan - Demographics Treatment End Date:: 05/10/18 Psychiatrist:: Annie Ojeda Psychiatrist Office #:: [phone] [facility] Therapist:: Elena Ann Therapist Phone #:: [phone] - Medications Home Medications: Home Medications Venlafaxine XR [Effexor Xr] 225 mg PO DAILY 03/23/18 Hydroxyzine Pamoate [Vistaril] 25 - 50 mg PO BID PRN PRN 03/30/18 traZODone [Desyrel] 50 mg PO QHS PRN 03/30/18 - Plan Details Progress/Aftercare Plan Details:: Lakshmi has demonstrated significant progress since beginning the IOP program. She has shown progress specifically with implementing coping skills to better regulate her mood , as well as to reduce depression and anxiety. Lakshmi has displayed an increased understanding of her own mental health warning signs and triggers, as well as identifying what she needs to manage stressors in the moment. She reports she has seen progress with becoming more capable of challenging her negative thoughts by practicing replacing them with positives as well as accepting the things she cannot change. Lakshmi has also improved her ability to openly and more effectively communicate with her supports during times of frustration as well as to prevent further crisis escalation. She reported seeing progress in reduced agitation, increased patience with self and forgiveness indicating that ?progress isn?t a straight line. She shared she has been able to use healthy forms or distraction or take walks when beginning to feel overwhelmed or agitated. Lakshmi additionally noted that she has observed improvements in her ability to manage her children when they are misbehaving or upset and is able to show them skill they can use to calm down or relax. Overall, she has demonstrated progress with improving her ability to manage symptoms of anxiety and depression as well prevent from becoming overwhelmed in times of increased distress. Strategies for Success:: 1. BE PATIENT with yourself and your supports ? managing mental health symptoms takes time and effort, but if you put in the work you will see the results!! 2. remember There will be good days and bad days, but it is up to you whether you do something to help make the bad days a little bit better! 3. A setback doesn't mean you are starting over, it simply means you may have to pay a little more attention to the things that are impacting you! 4. Use that positive self-talk! Turn those negatives into positives! 5. Make time to do self-care things and plan ahead with Wilian! Don?t set yourself up for failure! 6. Use your skills and take breaks when needed. 7. Don't forget to breathe! 8. reflect on progress and keep journaling about the good things so you have positives to look back on! 9. Remember to take your medication even when you don?t feel like you need to! It will help you prevent from falling back! - Appointments Appointments/Referrals to Other Services:: Client to follow up with [facility] for an intake assessment on 05/16/18 to be setup with individual therapy and case management services. Additionally, client [facility] and is able to follow-up with her PCP for ongoing medication management until she is able to get in with outpatient psychiatry.
--- NOTE | 2018-05-10 10:10 | BH.SGPN.GN ---
Behaviors/Verbalizations/Mental Status: []Client alert and oriented, neatly dressed and groomed- client reported I wanted to look nice today. Eye contact fair. Motor activity appropriate. Speech within normal limits. Affect congruent, mood euthymic. Thoughts linear, logical, no signs of hallucinations or delusions. Client Response/Progress/Benefit: []Client responded well to session, active participant. Client appeared to connect with the quote sharing, ?if you have an open mind and heart you will cope better.? Client identified crisis as a situation that causes anxiety, fear, and intense emotions. Client reported ?anything could be a crisis? depending on one?s current life stressors. Client stated everyone marco antonio and experiences crisis differently. Client selected a visual that represents client?s thoughts and emotions during crisis. Client shared in crisis she feels empty, alone, has negative self-talk, and feels like she is ?hanging on by a thread.? Client appeared to benefit from gaining insight to what crisis is like for her. Progress noted as client shared she has not experienced personal crisis in over a month.
--- NOTE | 2018-05-10 11:10 | BH.SGPN.GN ---
Behaviors/Verbalizations/Mental Status: []Client alert and oriented, neatly dressed and groomed- client reported I wanted to look nice today. Eye contact fair. Motor activity appropriate-left group shortly. Speech within normal limits. Affect congruent, mood euthymic, anxious. Thoughts linear, logical, no signs of hallucinations or delusions. Client Response/Progress/Benefit: []Client responded well to session, active participant. Client reported a big part of her progress has been ?paying attention to how I feel, studying the brain, and using my skills.? Client identified her biggest warning signs for crisis as changes in mood, feeling disconnected, and negative thinking. Client reported if she does not manage her warning signs ?I can spiral real quick.? Client created a crisis survival kit that will remind client of healthy coping skills she can use to deescalate and manage her emotions. Client?s kit included a pipe fitter apprentice to ?fidget with,? a fuzzy ball for the five-senses, letters that spell out self-care, and a feather for smoothness. Client appeared to benefit from creating something tangible to remind client of coping skills for crisis. Client to discharge from [facility] today as she has demonstrated significant progress.
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
== END 2018-05-10 14:00 | disposition home or self-care (01) ==
LOC: BHIOP 09:00
PROVIDERS: Visit Provider Psychiatry & Neurology Psychiatry
DX: F33.1 Major depressive disorder, recurrent, moderate (principal); F43.10 Post-traumatic stress disorder, unspecified; F60.3 Borderline personality disorder; Z72.0 Tobacco use; F12.90 Cannabis use, unspecified, uncomplicated
CPT/HCPCS: H2020

== ENCOUNTER 2020-08-06 07:27 | Emergency (ER) | payer MEDICAID, SELFPAY ==
[2020-08-06 07:28] VITALS: BP 145/91; PULSE 119; RESP 16; TEMP 36.2; O2SAT 98; BMI 58.1
--- NOTE | 2020-08-06 07:41 | ED.VIS.FALL ---
History of Present Illness Chief Complaint: Lower Extremity Injury Informant: Patient Occurred: Today Mechanism/Context: Same level fall, Slip - wet grass Location: left ankle Quality of Pain: Aching Current Severity: Moderate Maximum Severity: Severe Worsened by: trying to WB LLE Relieved by: rest/remaining still Associated Symptoms: Inability to ambulate. Negative for: Parasthesias, Weakness, Loss of consciousness, Amnesia Narrative: Patient states she actually had to slip and falls on wet grass this morning. The first time she landed on her buttocks and is having some pain in her right mid back. The second time she twisted her left ankle and felt a pop laterally, pain is medially and laterally, and she has not been able to bear weight since this occurred. She denies any hematuria, dyspnea, pleuritic discomfort. No neurologic symptoms centrally or peripherally. Denies any other injury. No recent illness. - Past Medical History (1) Anxiety Status: Chronic Past Medical History - Allergies and Home Meds Allergies/Adverse Reactions: Allergies No Known Allergies Allergy (Verified 03/30/18 15:32) Primary Care Physician: Care Physician,No Primary [Primary Care Provider] - Surgical History: noncontributory Smoking Status: Current every day smoker Review of Systems Eyes: Denies: Visual changes - bilaterally, Diplopia Cardiovascular: Denies: Chest pain, Palpitations Respiratory: Denies: Dyspnea, Cough Musculoskeletal: Reports: Back pain, Extremity Pain. Denies: Neck pain Skin: Denies: Rash, Wounds Neurological: Reports: Headache. Denies: Weakness, Numbness Physical Exam Vital Signs/Narrative: Vital Signs Temp Pulse Resp BP Pulse Ox 08/06/20 07:28 97.2 F L 119 H 16 145/91 H 98 General: Well nourished, Well developed, Obese - morbidly, - - NAD Head: Normocephalic, Atraumatic Eyes: Perrl, EOMI Neck: Nontender, Full ROM Respiratory: No distress, CTA bilaterally, Chest nontender Back: Paraspinal Tenderness - Right mid thoracic without signs of trauma. Negative for: Spinal Tenderness Extremeties: Limited range of motion left ankle, no deformities. Swollen and tender lateral malleolus. Also mildly tender medial malleolus. Nontender throughout the foot including the base of the fifth metatarsal, and nontender proximal fibula. Stable ankle joint with lateral forces applied. Skin: Normal color, No rash, No Trauma - Skin intact Neurological: Alert, Oriented x3, Cranial nerves II-XII grossly intact, Normal Strength, Normal Sensation Psychological: Normal affect, Normal Mood Diagnostic/Tx/Re-eval - Medical Decision Making On my interpretation, 3 views of the left ankle show no acute fracture or dislocation. The base of the fifth metatarsal is also normal-appearing on these films. Patient was reassured this is consistent with a sprain. She was given NSAID for pain, Aircast, crutches, appropriate discharge instructions for follow-up. I do not think that she requires x-rays of her back, she does not have any spinal tenderness, I am at a low suspicion of a rib fracture, I think this is thoracic paraspinal musculature that is injured. ED Disposition - Plan for ED Patient: Disposition: Home or Assisted Living Diagnosis: Left ankle sprain, Acute thoracic myofascial strain, Fall from slipping on wet surface Instructions: ED Sprain Ankle W X Ray Prescriptions: Naproxen [Naprosyn] 500 mg PO BID PRN #14 tab PRN Reason: pain Transmission Status: Pending to [id number] Referrals: Doctor,Your [STAFF PHYSICIAN] - 1-2 Weeks (if not improving and able to walk w/o crutches by 2 weeks)
--- NOTE | 2020-08-06 07:50 | RAD_ITS ---
STUDY: X-RAY - LEFT ANKLE REASON FOR EXAM: Female, 29 years old. Injury, pain TECHNIQUE: 3 view(s) of the ankle. COMPARISON: None. FINDINGS: Normal visualized distal tibia and fibula. Normal medial and lateral malleoli. Normal tibiotalar articulation and ankle mortise. Normal visualized talus and calcaneus. The visualized subtalar, talonavicular, calcaneocuboid and tarsal articulations are normal. The soft tissue structures are unremarkable. RAD/Ankle min 3 Views IMPRESSION: Normal x-ray examination of the ankle. Electronically Signed: Renetta Bradford, at 8:11 EST Tel , Service support ,
[2020-08-06] MEDS: Naproxen 500 MG Tablet PO (08:27)
== END 2020-08-06 08:44 | disposition home or self-care (01) ==
LOC: ED 08:20
PROVIDERS: Emergency Provider Emergency Medicine; PCP Nurse Practitioner Family
DX: S29.012A Strain of muscle and tendon of back wall of thorax, initial encounter (principal); F17.200 Nicotine dependence, unspecified, uncomplicated; E66.01 Morbid (severe) obesity due to excess calories; W01.0XXA Fall on same level from slipping, tripping and stumbling without subsequent striking against object, initial encounter; Y93.01 Activity, walking, marching and hiking; Y92.89 Other specified places as the place of occurrence of the external cause; Y99.8 Other external cause status
CPT/HCPCS: 73610; 99283

== ENCOUNTER 2021-01-07 15:03 | Emergency (ER) | payer MEDICAID, SELFPAY ==
[2021-01-07 15:04] VITALS: PULSE 139; RESP 16; TEMP 36.1; O2SAT 97; BMI 50.8
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
--- NOTE | 2021-01-07 15:38 | CM.ED ---
FLACO Note: Referral Source : RN Reason for Referral: Homeless and Meth addict SW met with patient in her room. She said she is a meth addict. She has assessment with [facility] in [place] on Monday at 2:30pm. Patient reports that she has been calling [facility] daily and they are full. Patient said that she would like to go to homeless assisted in [facility] but she is not a resident. SW explained that [facility] in [place] takes out of [facility] residents and she said that she has no transportation to [place]. Patient said that she has called [facility] and the Homeless Hotline. Patient talks about the future and getting treatment for her kids. Patient said I am not crazy. Patient [facility] and they are seeing about getting her a hotel/motel room at [facility]. Patient has not learned if that hotel/motel room accommodations has been approved. Patient said that if hotel/motel does not work out she will call her friend in [place] and see if she can go there. Patient said that her children services supervisor [employer] advised her to come to the ED. Patient was no in distress. Patient future oriented and reported she wants meth treatment. Patient has contacted community resources for support and assistance ([facility] and [employer]). Patient was offered handouts on [employer] but she declined due to being aware of resources. Patient said that she calls [facility] Daily. Plan: MD will assess. Patient said if discharged she will see about hotel/motel via [facility] or a friends house in [place]. Patient has outpatient AOD assessment scheduled for 01/19 at 2:30pm. Lia SHARMA
[2021-01-07 17:09] VITALS: RESP 16
--- NOTE | 2021-01-07 17:10 | ED.RN ---
SW SPOKE WITH PT TO GIVE OUT RESOURCES.
== END 2021-01-07 17:10 | disposition home or self-care (01) ==
PROVIDERS: Emergency Provider Emergency Medicine; PCP Nurse Practitioner Family
DX: F15.10 Other stimulant abuse, uncomplicated (principal); Z59.0 Homelessness; F31.9 Bipolar disorder, unspecified; F43.10 Post-traumatic stress disorder, unspecified; F17.210 Nicotine dependence, cigarettes, uncomplicated; E66.9 Obesity, unspecified; Z79.899 Other long term (current) drug therapy
CPT/HCPCS: 99282

== ENCOUNTER 2022-02-24 09:14 | Emergency (ER) | payer MEDICAID, SELFPAY ==
[2022-02-24 09:15] VITALS: BP 126/75; PULSE 98; RESP 18; TEMP 36.6; O2SAT 98; BMI 56.5
--- NOTE | 2022-02-24 09:33 | ED.VIS.FALL ---
HPI <JULIEN Yanez - Last Filed: 02/24/22 10:46> HPI - Fall History of Present Illness Chief Complaint: Fall Narrative Narrative: 31-year-old female was trying to get off of a trampoline last night when she tripped and fell onto the ground landing on her back. It was approximately 4 feet high. There was no loss of consciousness. Today she has pain in her neck and low back and left hip. She is able to ambulate. Denies headache, visual changes, nausea or vomiting. No blood thinners. No motor or sensory changes. PFSH <JULIEN Yanez - Last Filed: 02/24/22 10:46> PFSH Medical History no medical history Home Medications venlafaxine 150 mg capsule,extended release 24 hr 150 mg PO BREAKFAST 03/23/18 [History Last Taken Unknown] hydroxyzine pamoate 50 mg capsule (Vistaril) 25 - 50 mg PO BID PRN PRN Anxiety 03/30/18 [History Last Taken Unknown] trazodone 50 mg tablet 50 mg PO QHS PRN Insomnia 03/30/18 [History Last Taken Unknown] venlafaxine 75 mg capsule,extended release 24 hr 75 mg PO DINNER 05/11/18 [History Last Taken Unknown] naproxen 500 mg tablet 500 mg PO BID PRN pain #14 tabs 08/06/20 [Rx Last Taken Unknown] cyclobenzaprine 10 mg tablet 10 mg PO TID PRN Muscle Spasm #10 TABLETS 02/24/22 [Rx Last Taken Unknown] hydrocodone-acetaminophen 5-325mg 5mg-325mg 1 tab PO Q6H PRN PRN Pain 3 days #12 TABLETS 02/24/22 [Rx Last Taken Unknown] Allergy/AdvReac Type Severity Reaction Status Date / Time No Known Allergies Allergy Verified 02/24/22 09:17 Social History (Updated 01/07/21 @ 16:[address] Daniel Murphy MD) household members: none housing: homeless Smoking Status: Current every day smoker tobacco type: cigarettes alcohol intake: former substance use type: marijuana ROS <JULIEN Yanez - Last Filed: 02/24/22 10:46> ROS ED ROS Narrative Constitutional: Negative for fever, chills, malaise. Eyes: Negative for visual change. ENT: Negative for sore throat, ear pain, rhinorrhea. CVS: Negative for palpitations, chest pain, syncope. Respiratory: Negative for shortness of breath, cough, orthopnea. GI: Negative for abdominal pain, nausea, vomiting. : Negative for dysuria, hematuria or frequency. Neuro: Negative for headache, motor/sensory dysfunction. Skin: Negative for rash, abscess, or wound. Musc: Positive for back pain, trauma. Heme: Negative for easy bruising, bleeding, lymphadenopathy. EXAM <JULIEN Yanez - Last Filed: 02/24/22 10:46> Physical Exam Narrative Exam Narrative: CONST: Patient sitting in no acute distress. EYES: Normal inspection. ENT: Head normocephalic atraumatic, no raccoon eyes or preciado sign, no hemotympanum, no nasal septal hematoma, no CSF otorrhea or rhinorrhea. NECK: Normal inspection. No midline spinal tenderness with no step-off or crepitus. RESP: No respiratory distress, CTAB. CVS: Regular rate and rhythm, no murmur, no gallop. ABD: Soft and nontender, no guarding or rebound, nondistended. Back: Normal inspection, midline spinal tenderness in the lumbar spine, no step-off or crepitus. SKIN: Color normal, no rash, warm, dry, intact. EXTREMITIES: Normal appearance, no bony tenderness of upper/lower extremities, 2+ radial DP pulses. NEURO: Oriented x4. PSYCH: Normal affect. Const Vital Signs: 02/24/22 09:15 02/24/22 09:37 Temperature 97.9 F Temperature Source Temporal Pulse Rate 98 Respiratory Rate 18 Respiratory Effort Normal Non-Labored Blood Pressure 126/75 H Blood Pressure Mean 92 Pulse Ox 98 Oxygen Delivery Method Room Air <Dr. Daniel Murphy MD - Last Filed: 02/24/22 12:01> Physical Exam Const Vital Signs: 02/24/22 09:15 02/24/22 09:37 Temperature 97.9 F Temperature Source Temporal Pulse Rate 98 Respiratory Rate 18 Respiratory Effort Normal Non-Labored Blood Pressure 126/75 H Blood Pressure Mean 92 Pulse Ox 98 Oxygen Delivery Method Room Air MDM <JULIEN Yanez - Last Filed: 02/24/22 10:46> MDM MDM Narrative Medical decision making narrative: Patient had mechanical fall off a trampoline onto her back. There was head injury but no LOC. No thinners, no headache, no sign of head trauma or basilar skull fracture. No indication for imaging. Back appears normal with no signs of trauma. Normal heart and lung sounds. She has midline spinal tenderness only in the lumbar spine with no step-offs or crepitus. Upper and lower extremities neurovascularly intact. ED attending interpretation of lumbar x-rays show compression fracture of L3 with less than 50% height loss and maintained normal alignment. This should heal without surgical intervention. She was prescribed [place], Flexeril, and recommended to take stool softeners and follow-up with primary care. She was discharged in stable condition. Diagnoses 1. Mechanical fall 2. Low back pain 3. L3 compression fracture Radiography Diagnostic Testing: Clinical Impression(s) from Imaging Studies Lumbar Spine X-Ray 02/24/22 10:02 IMPRESSION: Degenerative changes of the spine, as detailed above. Electronically Signed: Enmanuel Silveira MD at 10:41 EDT , <Dr. Daniel Murphy MD - Last Filed: 02/24/22 12:01> MDM MDM Narrative Medical decision making narrative: Patient had mechanical fall off a trampoline onto her back. There was head injury but no LOC. No thinners, no headache, no sign of head trauma or basilar skull fracture. No indication for imaging. Back appears normal with no signs of trauma. Normal heart and lung sounds. She has midline spinal tenderness only in the lumbar spine with no step-offs or crepitus. Upper and lower extremities neurovascularly intact. ED attending interpretation of lumbar x-rays show compression fracture of L3 with less than 50% height loss and maintained normal alignment. This should heal without surgical intervention. She was prescribed [place], Flexeril, and recommended to take stool softeners and follow-up with primary care. She was discharged in stable condition. Diagnoses 1. Mechanical fall 2. Low back pain 3. L3 compression fracture I have personally performed a face to face assessment of the patient and have reviewed the ROXANA Note. I performed a substantive portion of the visit including all aspects of the following. My brice findings include: History is remarkable for fall off trampoline. She complains predominantly of lower back pain. She denied loss conscious. She not amnestic. She denies nausea or vomiting. She denies paresthesia, anesthesia motors upper or lower extremity. She denies problems with coordination or balance. She denies double vision, blurred vision or change in vision. She denies trouble with speech or swallowing. Exam is remarkable for significant pain lumbar region midline. There is no discomfort over the spinous process of the dorsal or cervical spine. She has full active range of motion of her neck. GCS is 15. Motor or sensory intact. DTR symmetric with no clonus Babinski. Cranials 2 through 12 are intact. Medical Decision Making x-ray of the LS-spine was obtained to evaluate for fracture. There is evidence of a L3 compression fracture. 3 views were obtained and independently reviewed and interpreted by me. Of note radiologist read the x-ray is negative. Other additions or changes: None Radiography Diagnostic Testing: Clinical Impression(s) from Imaging Studies Lumbar Spine X-Ray 02/24/22 10:02 IMPRESSION: Degenerative changes of the spine, as detailed above. Electronically Signed: Enmanuel Silveira MD at 10:41 EDT , Discharge Plan Triage Chief Complaint: Fall ED Midlevel Provider: Marie Castillo ED Provider: Daniel Murphy Dx/Rx/DC Orders Clinical Impression: Fracture of lumbar spine Instructions: Fx Back Prescriptions: New hydrocodone-acetaminophen 5-325 mg tablet 1 tab PO Q6H PRN PRN (Reason: Pain) 3 Days Qty: 12 0RF cyclobenzaprine 10 mg tablet 10 mg PO TID PRN (Reason: Muscle Spasm) Qty: 10 0RF No Action venlafaxine 150 MG capsule 150 mg PO BREAKFAST Label Comments: 150mg in the AM, 75mg at noon trazodone 50 MG tablet 50 mg PO QHS PRN (Reason: Insomnia) hydroxyzine pamoate [Vistaril] 50 MG capsule 25 - 50 mg PO BID PRN PRN (Reason: Anxiety) venlafaxine 75 MG capsule 75 mg PO DINNER naproxen 500 MG tablet 500 mg PO BID PRN (Reason: pain) Qty: 14 0RF Stand Alone Forms: ED Work / School Excuse Primary Care Provider: Care Physician,No Primary Referrals: Oma Major SECURITY SCREENER, SECURITY SCREENER-C [NON-STAFF] - Activity Restrictions/Additional Instructions: You have a fracture of L3 in your low back. I prescribed pain medication. This can cause constipation so you need to take Metamucil twice daily to prevent this. Please follow-up with your primary care doctor. Disposition Disposition: Home, Self Care Discharge Date/Time: 02/24/22 10:33
[2022-02-24] MEDS: Ibuprofen 600 MG Tablet PO (09:42)
--- NOTE | 2022-02-24 10:02 | RAD_ITS ---
STUDY: X-RAY - LUMBAR SPINE REASON FOR EXAM: Female, 31 years old. Back pain TECHNIQUE: 3 view(s) of the lumbar spine were obtained. COMPARISON: None FINDINGS: Normal lumbar lordosis. There is no substantial scoliosis. There is a normal alignment of the vertebrae. There is multilevel endplate spondylosis of the lumbar vertebrae. Disc space narrowing at the L5-S1 level. The soft tissue structures are unremarkable. RAD/Lumbar Spine 2 or 3 Views IMPRESSION: Degenerative changes of the spine, as detailed above. Electronically Signed: Enmanuel Silveira MD at 10:41 EDT ,
== END 2022-02-24 10:33 | disposition home or self-care (01) ==
PROVIDERS: Emergency Provider Emergency Medicine; Visit Provider Emergency Medicine
DX: S32.039A Unspecified fracture of third lumbar vertebra, initial encounter for closed fracture (principal); S09.90XA Unspecified injury of head, initial encounter; R29.890 Loss of height; F17.210 Nicotine dependence, cigarettes, uncomplicated; W17.89XA Other fall from one level to another, initial encounter; Y93.44 Activity, trampolining; Z59.00 Homelessness unspecified
CPT/HCPCS: 72100; 99283

== ENCOUNTER 2022-03-12 17:57 | Emergency (ER) | payer MEDICAID, SELFPAY ==
[2022-03-12 17:58] VITALS: BP 144/101; PULSE 105; RESP 15; TEMP 36.5; O2SAT 97; BMI 53.2
--- NOTE | 2022-03-12 18:04 | EX.ED.DYSGE1 ---
HPI <JULIEN Yanez - Last Filed: 03/12/22 18:44> History of Present Illness Chief Complaint: General Illness Narrative Narrative: Patient was sent here from the [employer]. Someone there tested positive for COVID and she is now required to have a COVID test done. She denies any symptoms. PFSH <JULIEN Yanez - Last Filed: 03/12/22 18:44> PFSH Medical History (Updated 03/12/22 @ 18:43 by JULIEN Yanez) Bipolar 1 disorder Insomnia PTSD (post-traumatic stress disorder) Home Medications venlafaxine 150 mg capsule,extended release 24 hr 150 mg PO BREAKFAST 03/23/18 [History Last Taken Unknown] hydroxyzine pamoate 50 mg capsule (Vistaril) 25 - 50 mg PO BID PRN PRN Anxiety 03/30/18 [History Last Taken Unknown] trazodone 50 mg tablet 50 mg PO QHS PRN Insomnia 03/30/18 [History Last Taken Unknown] venlafaxine 75 mg capsule,extended release 24 hr 75 mg PO DINNER 05/11/18 [History Last Taken Unknown] naproxen 500 mg tablet 500 mg PO BID PRN pain #14 tabs 08/06/20 [Rx Last Taken Unknown] cyclobenzaprine 10 mg tablet 10 mg PO TID PRN Muscle Spasm #10 TABLETS 02/24/22 [Rx Last Taken Unknown] meloxicam 15 mg tablet 15 mg PO 03/09/22 [History Last Taken Unknown] Allergy/AdvReac Type Severity Reaction Status Date / Time No Known Allergies Allergy Verified 03/12/22 18:01 Family History (Updated 03/09/22 @ 11:03 by Juani Esqueda) Father Diabetes Heart disease Mother Diabetes Surgical History Hx of section Social History (Updated 03/09/22 @ 11:02 by Juani Esqueda) household members: none housing: homeless Smoking Status: Current every day smoker tobacco type: cigarettes alcohol intake: former substance use type: marijuana ROS <JULIEN Yanez - Last Filed: 03/12/22 18:44> ROS ED ROS Narrative Constitutional: Negative for fever, chills, malaise. Eyes: Negative for visual change. ENT: Negative for sore throat, ear pain, rhinorrhea. CVS: Negative for palpitations, chest pain, syncope. Respiratory: Negative for shortness of breath, cough, orthopnea. GI: Negative for abdominal pain, nausea, vomiting, diarrhea, constipation, melena, hematochezia. : Negative for dysuria, hematuria or frequency. Neuro: Negative for headache, motor/sensory dysfunction. Skin: Negative for rash, abscess, or wound. Musc: Negative for joint pain, swelling, trauma. Heme: Negative for easy bruising, bleeding, lymphadenopathy. EXAM <JULIEN Yanez - Last Filed: 03/12/22 18:44> Physical Exam Narrative Exam Narrative: CONST: Patient sitting in no acute distress. EYES: Normal inspection. NECK: Normal inspection. RESP: No respiratory distress, CTAB. CVS: Regular rate and rhythm, no murmur, no gallop. SKIN: Color normal, no rash, warm, dry, intact. EXTREMITIES: Normal appearance, no pedal edema. NEURO: Oriented x4. PSYCH: Normal affect. Const Vital Signs: 03/12/22 17:58 03/12/22 18:08 Temperature 97.7 F L Temperature Source Temporal Pulse Rate 105 H Respiratory Rate 15 Respiratory Effort Normal Blood Pressure 144/101 H Blood Pressure Mean 115 Pulse Ox 97 Oxygen Delivery Method Room Air <Dr. Omar Elise DO - Last Filed: 03/12/22 23:19> Physical Exam Const Vital Signs: 03/12/22 17:58 03/12/22 18:08 Temperature 97.7 F L Temperature Source Temporal Pulse Rate 105 H Respiratory Rate 15 Respiratory Effort Normal Blood Pressure 144/101 H Blood Pressure Mean 115 Pulse Ox 97 Oxygen Delivery Method Room Air MDM <JULIEN Yanez - Last Filed: 03/12/22 18:44> [facility] Narrative Medical decision making narrative: Patient had possible COVID exposure and is here requesting a test. She has no symptoms. Rapid COVID is negative. Patient advised to monitor for symptoms and was discharged in stable condition. <Dr. Omar Elise DO - Last Filed: 03/12/22 23:19> [facility] Narrative Medical decision making narrative: This patient was seen with a PA/FINANCE INSURANCE MANAGER Individually assessed they patient including history and physical. I have reviewed everything on the chart that is available and agree with the documentation provided by the PA/FINANCE INSURANCE MANAGER including discussion about the assessment, treatment plan, discussion, and return precautions. Patient had possible COVID exposure and is here requesting a test. She has no symptoms. Rapid COVID is negative. Patient advised to monitor for symptoms and was discharged in stable condition. Impression: #1 exposure to COVID-19 Discharge Plan Triage Chief Complaint: General Illness ED Midlevel Provider: Marie Castillo ED Provider: Omar Elise Dx/Rx/DC Orders Clinical Impression: Encounter for screening for COVID-19 Instructions: Coronavirus Disease 2019 (COVID-19): Overview Prescriptions: No Action meloxicam 15 mg tablet 15 mg PO venlafaxine 150 MG capsule 150 mg PO BREAKFAST Label Comments: 150mg in the AM, 75mg at noon trazodone 50 MG tablet 50 mg PO QHS PRN (Reason: Insomnia) hydroxyzine pamoate [Vistaril] 50 MG capsule 25 - 50 mg PO BID PRN PRN (Reason: Anxiety) venlafaxine 75 MG capsule 75 mg PO DINNER naproxen 500 MG tablet 500 mg PO BID PRN (Reason: pain) Qty: 14 0RF cyclobenzaprine 10 mg tablet 10 mg PO TID PRN (Reason: Muscle Spasm) Qty: 10 0RF Primary Care Provider: Care Physician,No Primary Referrals: Care Physician,No Primary [Primary Care Provider] - Disposition Disposition: Home, Self Care Discharge Date/Time: 03/12/22 19:03
== END 2022-03-12 19:03 | disposition home or self-care (01) ==
PROVIDERS: Emergency Provider Student in an Organized Health Care Education/Training Program; Visit Provider Student in an Organized Health Care Education/Training Program
DX: Z20.822 Contact with and (suspected) exposure to COVID-19 (principal); F31.9 Bipolar disorder, unspecified; F17.210 Nicotine dependence, cigarettes, uncomplicated; F43.10 Post-traumatic stress disorder, unspecified; Z79.899 Other long term (current) drug therapy; Z59.00 Homelessness unspecified
CPT/HCPCS: 87811; 99282

== ENCOUNTER 2022-03-19 18:26 | Emergency (ER) | payer MEDICAID, SELFPAY ==
[2022-03-19 18:30] VITALS: BP 160/112; PULSE 87; RESP 16; TEMP 36.6; O2SAT 97; BMI 53.1
--- NOTE | 2022-03-19 18:41 | CT_ITS ---
STUDY: CTA CHEST REASON FOR EXAM: Female, 31 years old. covid 19+ pulmonary embolism RADIATION DOSAGE (If Supplied By Facility): CTDIvol = ( 35.35 ) mGy, DLP = ( 606.54 ) mGycm TECHNIQUE: The examination was performed with the intravenous administration of IV 100mL Isovue-370. Post-processing of the angiographic images was performed, with multiplanar reformation and 3D reconstruction. Individualized dose optimization techniques were used for this CT. COMPARISON: None. FINDINGS: Adequate density of contrast in the pulmonary arteries and no significant motion; diagnostic exam. No pulmonary artery filling defect to suggest pulmonary embolism. There is no evidence of right heart strain. Normal size heart. No pericardial fluid. No mediastinal or hilar lymphadenopathy. No coronary artery calcifications. No mass or filling defect. No bronchiectasis. No peribronchial thickening. Normal lung volumes without airtrapping. No airspace opacity or abnormal interstitial pattern. No nodule or mass. No pleural effusion or pneumothorax. Thyroid gland and base of the neck are within normal limits. No axillary lymphadenopathy. No fracture or focal osseous lesion. Visualized solid and hollow viscus organs are within normal limits of the exam. CT/CTA Chest W/WO Contrast IMPRESSION: Normal CTA chest examination, without a demonstrated pulmonary embolism or arterial dissection. Electronically Signed: Alfredo Barrientos DO at 20:20 EDT ,
[2022-03-19 19:04] LABS: Absolute Lymphocyte Count 3.13 X10^3/uL (0.83-4.51); Absolute Neutrophil Count 1.5 X10^3/uL (2.0-7.7); Basophil# 0.02 X10^3/uL; Basophil% 0.4 % (0-1); Eosinophil# 0.18 X10^3/uL; Eosinophils% 3.4 % (0-5); Hematocrit 41.6 % (37-47); Hemoglobin 13.4 g/dL (12.0-15.0); Lymphocyte # 3.13 X10^3/ul (0.83-4.51); Lymphocyte % 58.6 % (19-41); Mean Corp Hgb Conc 32.2 g/dL (32-36); Mean Corpuscular Hgb 29.1 pg (27.0-32.0); Mean Corpuscular Volume 90.4 fL (81-99); Mean Platelet Vol. 9.2 fl (6.2-12.0); Monocyte% 9.4 % (0-10); NRBC Flagged by Analyzer 0 % (0-5); Platelet Count 299 K/mm3 (150-450); RBC Distribution Width CV 13.8 % (11.6-14.6); RBC Distribution Width SD 45.8 fl (35.1-43.9); White Blood Count 5.3 K/mm3 (4.4-11.0)
[2022-03-19 19:30] LABS: Anion Gap 6 (5-15); BUN 8 mg/dL (7-18); BUN/Creat Ratio 13.2 RATIO (10-20); Calcium,Total 8.3 mg/dL (8.5-10.1); Chloride 107 mmol/L (98-107); Creatinine, Serum 0.61 mg/dL (0.55-1.02); EST Glomerular Filtration Rate 120 mL/min (>60); Est Glom Filt Rate - Afr Amer 146 mL/min (>60); Glucose 109 mg/dL (74-106); Potassium 3.3 mmol/L (3.5-5.1); Sodium Level 140 mmol/L (136-145); Troponin-I HS 9 pg/mL (3.0-54.0)
--- NOTE | 2022-03-19 20:42 | ED.VIS.DYS ---
HPI History of Present Illness Chief Complaint: Shortness of Breath Informant: patient Narrative Narrative: 31-year-old female states that she has tested positive for COVID-19. She states that she feels very dyspneic and dizzy. She notes a cough and congestion and headache. She states that got to the point where she cannot take it anymore. She is not sure if she is dyspneic because of COVID or because of her anxiety. She has been eating and drinking appropriately. Cough is nonproductive. PFSH PFSH Medical History Bipolar 1 disorder Insomnia PTSD (post-traumatic stress disorder) Home Medications venlafaxine 150 mg capsule,extended release 24 hr 150 mg PO BREAKFAST 03/23/18 [History Last Taken Unknown] hydroxyzine pamoate 50 mg capsule (Vistaril) 25 - 50 mg PO BID PRN PRN Anxiety 03/30/18 [History Last Taken Unknown] trazodone 50 mg tablet 50 mg PO QHS PRN Insomnia 03/30/18 [History Last Taken Unknown] venlafaxine 75 mg capsule,extended release 24 hr 75 mg PO DINNER 05/11/18 [History Last Taken Unknown] naproxen 500 mg tablet 500 mg PO BID PRN pain #14 tabs 08/06/20 [Rx Last Taken Unknown] cyclobenzaprine 10 mg tablet 10 mg PO TID PRN Muscle Spasm #10 TABLETS 02/24/22 [Rx Last Taken Unknown] meloxicam 15 mg tablet 15 mg PO 03/09/22 [History Last Taken Unknown] Allergy/AdvReac Type Severity Reaction Status Date / Time No Known Allergies Allergy Verified 03/19/22 18:30 Family History Father Diabetes Heart disease Mother Diabetes Surgical History Hx of section Social History household members: none housing: homeless Smoking Status: Current every day smoker tobacco type: cigarettes alcohol intake: former substance use type: marijuana ROS ROS ED Constitutional Constitutional ED: Reports chills; Denies fever(s) or weight loss Eyes Eyes: Denies change in vision or diplopia ENT ENT ED: Denies ear pain, rhinorrhea or sore throat Cardiovascular Cardiovascular: Denies chest pain, orthopnea, palpitations or racing heartbeat Respiratory/Chest Respiratory/Chest: Reports cough and dyspnea; Denies orthopnea Gastrointestinal Gastrointestinal: Reports nausea; Denies abdominal pain, diarrhea or vomiting Genitourinary Genitourinary ED: Denies dysuria, hematuria or urinary frequency Musculoskeletal Musculoskeletal: Denies arthralgias or myalgias Integumentary Denies abscess or rash Neurologic Neurologic: Reports headache(s); Denies weakness Psychiatric Psychiatric: Denies anxiety, depression, suicidal ideation or suicidal thoughts Endocrine Endocrinology: Denies polydipsia, polyphagia or polyuria Allergic/Immunologic Allergic/Immunologic ED: Denies mouth swelling, tongue swelling or urticaria EXAM Physical Exam Const Vital Signs: 03/19/22 18:30 Temperature 98 F Temperature Source Oral Pulse Rate 87 Respiratory Rate 16 Blood Pressure 160/112 H Blood Pressure Mean 128 Pulse Ox 97 Oxygen Delivery Method Room Air Positive well nourished, well developed and obese General Appearance ED: well developed Nutritional Appearance: obese HEENT Reports normocephalic, head/scalp atraumatic and moist mucous membranes Eyes PERRL and EOMs intact bilaterally Neck no lymphadenopathy, supple and no JVD Resp normal respiratory effort and clear to auscultation bilaterally Cardio regular rate, regular rhythm and no murmurs GI normal to inspection, nondistended, normoactive bowel sounds and non-tender Palpation: soft Back/Spine no CVA tenderness and normal ROM Extremity normal to inspection General Extremety ED: Negative for edema General Extremity: Negative for edema Neuro oriented x3 and CN's II-XII intact bilaterally Sensorium / Orientation: alert Motor Exam: strength 5/5 throughout Psych mental status grossly normal Mood & Affect: Negative for depressed or tearful Skin no rashes or lesions noted and no wounds MDM MDM MDM Narrative Medical decision making narrative: Basic blood work was obtained and negative for including a troponin. CTA of the chest is negative for dissection or for infiltrate. She is 97 to 99% on room air and does not appear to be dyspneic. Think the patient can be discharged home instructions to follow-up as needed return if worsening or concerns Lab Data Attestation: I reviewed the patient's lab results. Labs: Laboratory Results - last 24 hr 03/19/22 03/19/22 18:55 18:55 WBC 5.3 RBC 4.60 Hgb 13.4 Hct 41.6 MCV 90.4 MCH 29.1 MCHC 32.2 RDW Std Deviation 45.8 H RDW Coeff of Blanka 13.8 Plt Count 299 MPV 9.2 Immature Gran % (Auto) 0.200 Neut % (Auto) 28.0 L Lymph % (Auto) 58.6 H [place] % (Auto) 9.4 Eos % (Auto) 3.4 Baso % (Auto) 0.4 Absolute Neuts (auto) 1.5 L Absolute Lymphs (auto) 3.13 Nucleated RBC % 0 Sodium 140 Potassium 3.3 L Chloride 107 Carbon Dioxide 27.0 Anion Gap 6 BUN 8 Creatinine 0.61 Estim Creat Clear Calc 122.80 Est GFR (MDRD) Af Amer 146 Est GFR (MDRD) Non-Af 120 BUN/Creatinine Ratio 13.2 Glucose 109 H Calcium 8.3 L Troponin I High Sens 9 Discharge Plan Triage Chief Complaint: Shortness of Breath ED Provider: Jose Anthony Dx/Rx/DC Orders Clinical Impression: COVID-19, Anxiety, Acute dyspnea Instructions: Coronavirus Disease 2019 (COVID-19): Caring for Yourself or Others Prescriptions: No Action meloxicam 15 mg tablet 15 mg PO venlafaxine 150 MG capsule 150 mg PO BREAKFAST Label Comments: 150mg in the AM, 75mg at noon trazodone 50 MG tablet 50 mg PO QHS PRN (Reason: Insomnia) hydroxyzine pamoate [Vistaril] 50 MG capsule 25 - 50 mg PO BID PRN PRN (Reason: Anxiety) venlafaxine 75 MG capsule 75 mg PO DINNER naproxen 500 MG tablet 500 mg PO BID PRN (Reason: pain) Qty: 14 0RF cyclobenzaprine 10 mg tablet 10 mg PO TID PRN (Reason: Muscle Spasm) Qty: 10 0RF Primary Care Provider: Care Physician,No Primary Referrals: Care Physician,No Primary [Primary Care Provider] - Disposition Disposition: Home, Self Care
[2022-03-19 20:54] VITALS: BP 152/103; PULSE 92; RESP 18; O2SAT 97; O2SAT 98
== END 2022-03-19 20:59 | disposition home or self-care (01) ==
PROVIDERS: Emergency Provider Emergency Medicine; Visit Provider Emergency Medicine
DX: U07.1 COVID-19 (principal); F31.9 Bipolar disorder, unspecified; F17.210 Nicotine dependence, cigarettes, uncomplicated; F41.9 Anxiety disorder, unspecified; F43.10 Post-traumatic stress disorder, unspecified; E66.9 Obesity, unspecified; Z59.00 Homelessness unspecified; Z79.899 Other long term (current) drug therapy
CPT/HCPCS: 71275; 80048; 84484; 85025; 99285; Q9967; A4216

== ENCOUNTER 2022-05-23 18:01 | Emergency (ER) | payer MEDICAID, SELFPAY ==
[2022-05-23 18:02] VITALS: BP 125/83; PULSE 120; RESP 24; TEMP 36.5; O2SAT 99; BMI 50.8
[2022-05-23 18:25] VITALS: BP 127/82; PULSE 120; RESP 22; O2SAT 98
[2022-05-23] MEDS: LORazepam 2 MG/ML Syringe IM (18:44)
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
--- NOTE | 2022-05-23 19:50 | CM.ED ---
Addendum entered by Lia Chakraborty 05/23/22 19:56: Per MD Note patient's mental health issues involve her anxiety related to her drug use. Lia SHARMA Original Note: FLACO Note SW reviewed chart and spoke to public relations intern and MD. vice president of talent management said that patient has drug addiction and does not want help. Patient is homeless. SW spoke to MD and MD Ro said that patient does not want help. MD indicated no need for SW to see patient. SW did provide patient with [facility] resource list and homeless navigator phone number. No concerns or issues voiced to this director underwriter sales when patient provided her this information. Plan: Resources provided Lia SHARMA
--- NOTE | 2022-05-23 21:00 | ED.RN ---
PT REPORTS SHE IS FEELING BETTER. AMBULATES OUT OF DEPARTMENT PRIOR TO RECEIVING D/C INSTRUCTIONS. UNABLE TO OBTAIN D/C VS. DR. MERCER INFORMED.
== END 2022-05-23 21:00 | disposition left against medical advice (07) ==
PROVIDERS: Emergency Provider Emergency Medicine; Visit Provider Emergency Medicine
DX: F41.0 Panic disorder [episodic paroxysmal anxiety] (principal); F15.10 Other stimulant abuse, uncomplicated; F31.9 Bipolar disorder, unspecified; F17.210 Nicotine dependence, cigarettes, uncomplicated; Z59.00 Homelessness unspecified; F43.10 Post-traumatic stress disorder, unspecified; R00.2 Palpitations; Z79.899 Other long term (current) drug therapy; Z53.29 Procedure and treatment not carried out because of patient's decision for other reasons
CPT/HCPCS: 96372; 99282